=== PATIENT | female | born 1995 | race Caucasian/White ===

== ENCOUNTER 2025-03-29 23:46 | Emergency (ER) | payer MEDICAID, OTHER ==
[~2025-03-29] VITALS: Ht 162.6 cm; Wt 83.9 kg
[2025-03-30 01:13] VITALS: BP 128/70; TEMP 98.7; O2SAT 99
[2025-03-30] MEDS ORDERED: HYDROCODONE/APAP 5/325MG TABLET ONE (01:34)
[2025-03-30] MEDS: HYDROCODONE/APAP 5/325MG TABLET PO ONE (01:35)
== END 2025-03-30 01:36 | disposition home or self-care (01) ==
LOC: ER 23:51
DX: G89.29 Other chronic pain (principal); M79.671 Pain in right foot; M79.672 Pain in left foot; W18.39XA Other fall on same level, initial encounter; Y93.89 Activity, other specified; Y92.89 Other specified places as the place of occurrence of the external cause; Y99.8 Other external cause status